=== PATIENT | female | born 1950 | race Caucasian/White ===

== ENCOUNTER 2016-06-05 15:53 | Inpatient (IN) | payer MEDICARE, OTHER ==
[~2016-06-05 15:53] MED LIST: METFORMIN HCL500 MG PO
[2016-06-05 17:14] LABS: HEMOGLOBIN 10.8 gm/dl (12.3-15.3); RED BLOOD COUNT 3.56 M/UL (4.00-5.10)
[2016-06-05 17:37] LABS: BUN/CREATININE RATIO 13 (0-10)
[2016-06-06] MEDS ORDERED: ARNUITY ELLIP100 MCG INJ (00:27)
[2016-06-06] MEDS ORDERED: SYMBICORT 16010.2 GM INH (00:28)
[2016-06-06] MEDS ORDERED: SYNTHROID 125125 MCG PO (00:30)
[2016-06-06] MEDS ORDERED: CALCIUM 600 +1 EAC3 PO (00:30)
[2016-06-06] MEDS ORDERED: NEURONTIN 300300 MG PO (00:31)
[2016-06-06] MEDS ORDERED: LORTAB 5-325 M1 EACH PO (00:32)
[2016-06-06] MEDS ORDERED: SPIRIVA HANDIH18 MCG INH (00:33)
[2016-06-06] MEDS ORDERED: SINGULAIR10 MG PO (00:34)
[2016-06-06] MEDS ORDERED: NITROSTAT 0.40.4 MG SL (00:35)
[2016-06-06] MEDS ORDERED: TRIAMCINOLONE A15 GM TP (00:35)
[2016-06-06] MEDS ORDERED: ASPIRIN EC81 MG PO (00:36)
[2016-06-06] MEDS ORDERED: TRAZODONE HCL150 MG PO (00:37)
[2016-06-06] MEDS ORDERED: LEVOCETIRIZINE D5 MG PO (00:37)
[2016-06-06] MEDS ORDERED: SEROQUEL200 MG PO (00:38)
[2016-06-06] MEDS ORDERED: PAXIL 20 MG TAB20 MG PO (00:38)
[2016-06-06] MEDS ORDERED: PERPHENAZINE8 MG PO (00:39)
[2016-06-06] MEDS ORDERED: INCRUSE ELLI62.5 MCG INH (00:40)
[2016-06-06] MEDS ORDERED: METOPROLOL SUCC25 MG PO (00:40)
[2016-06-06] MEDS ORDERED: LISINOPRIL30 MG PO (00:40)
[2016-06-06 05:28] LABS: HEMOGLOBIN 11.1 gm/dl (12.3-15.3); RED BLOOD COUNT 3.65 M/UL (4.00-5.10)
[2016-06-06 05:51] LABS: BUN/CREATININE RATIO 15 (0-10)
[2016-06-08 04:53] LABS: HEMOGLOBIN 10.6 gm/dl (12.3-15.3); RED BLOOD COUNT 3.55 M/UL (4.00-5.10)
[2016-06-08 04:56] LABS: WHITE BLOOD COUNT 17.5 K/UL (4.5-11.0)
[2016-06-08 05:08] LABS: BUN/CREATININE RATIO 24 (0-10)
[2016-06-09 04:18] LABS: HEMOGLOBIN 10.5 gm/dl (12.3-15.3); RED BLOOD COUNT 3.47 M/UL (4.00-5.10); WHITE BLOOD COUNT 16.1 K/UL (4.5-11.0)
[2016-06-09 04:38] LABS: BUN/CREATININE RATIO 20 (0-10)
[2016-06-10 06:17] LABS: HEMOGLOBIN 10.7 gm/dl (12.3-15.3); RED BLOOD COUNT 3.55 M/UL (4.00-5.10); WHITE BLOOD COUNT 16.2 K/UL (4.5-11.0)
[2016-06-10 06:35] LABS: BUN/CREATININE RATIO 24 (0-10)
[2016-06-10] MEDS ORDERED: GLUCOPHAGE 500500 MG PO (09:46)
[2016-06-10 21:35] LABS: HEMOGLOBIN 11.3 gm/dl (12.3-15.3)
[2016-06-11 06:32] LABS: HEMOGLOBIN 10.6 gm/dl (12.3-15.3)
[2016-06-11] MEDS ORDERED: OMNICEF 300 MG300 MG PO (11:21)
[2016-06-11] MEDS ORDERED: ALBUTEROL0.63 MG/3 INH (11:22)
[2016-06-11] MEDS ORDERED: IPRAT-ALBUT 0.5-3 ML INH (11:23)
== END 2016-06-11 13:07 | disposition home or self-care (01) | DRG 871 ==
LOC: ER1 15:53 → MED SURG 4 18:13 → PROG CARE 18:13 → ZEROF 18:13 → PROG CARE 23:10 → MED SURG 4 06-09 14:24
PROVIDERS: Emergency Medicine; Internal Medicine; ADMIT Hospitalist
DX: A41.9 Sepsis, unspecified organism (principal); J96.21 Acute and chronic respiratory failure with hypoxia; G93.41 Metabolic encephalopathy; J96.22 Acute and chronic respiratory failure with hypercapnia; J44.0 Chronic obstructive pulmonary disease with (acute) lower respiratory infection; K62.5 Hemorrhage of anus and rectum; R65.20 Severe sepsis without septic shock; T79.6XXA Traumatic ischemia of muscle, initial encounter; J44.9 Chronic obstructive pulmonary disease, unspecified; I10 Essential (primary) hypertension; E87.6 Hypokalemia; I95.9 Hypotension, unspecified; E78.5 Hyperlipidemia, unspecified; E66.9 Obesity, unspecified; E03.9 Hypothyroidism, unspecified; D64.9 Anemia, unspecified; I25.10 Atherosclerotic heart disease of native coronary artery without angina pectoris; Z95.1 Presence of aortocoronary bypass graft; Z88.7 Allergy status to serum and vaccine; Z88.8 Allergy status to other drugs, medicaments and biological substances; Z88.0 Allergy status to penicillin; Z79.82 Long term (current) use of aspirin; Z79.891 Long term (current) use of opiate analgesic; Z79.899 Other long term (current) drug therapy; Z28.21 Immunization not carried out because of patient refusal; K64.8 Other hemorrhoids; E11.9 Type 2 diabetes mellitus without complications; Z99.81 Dependence on supplemental oxygen; F17.210 Nicotine dependence, cigarettes, uncomplicated; I27.2 Other secondary pulmonary hypertension; I07.1 Rheumatic tricuspid insufficiency; S00.81XA Abrasion of other part of head, initial encounter; S00.31XA Abrasion of nose, initial encounter; W01.0XXA Fall on same level from slipping, tripping and stumbling without subsequent striking against object, initial encounter; Y93.01 Activity, walking, marching and hiking; Y92.002 Bathroom of unspecified non-institutional (private) residence as the place of occurrence of the external cause
CPT/HCPCS: 36415; 51701; 70450; 71010; 71020; 80048; 80053; 81001; 82550; 82553; 82803; 82962; 83036; 83605; 83735; 83874; 84132; 84439; 84443; 84484; 85014; 85018; 85025; 85027; 87040; 87077; 87186; 87278; 93005; 94640; 94660; 94664; 96374; 96375; 97110; 97116; 99285; J0456; J0696; J1650; J2930; J7030; J7050; Q0175

== ENCOUNTER → 2016-09-30 | Outpatient (CLI) | payer MEDICARE, OTHER ==
[~2016-09-30] MED LIST changes: +ALBUTEROL0.63 MG/3 INH; +ARNUITY ELLIP100 MCG INJ; +ASPIRIN EC81 MG PO; +CALCIUM 600 +1 EAC3 PO; +GLUCOPHAGE 500500 MG PO; +INCRUSE ELLI62.5 MCG INH; +IPRAT-ALBUT 0.5-3 ML INH; +LEVOCETIRIZINE D5 MG PO; +LISINOPRIL30 MG PO; +LORTAB 5-325 M1 EACH PO; +METOPROLOL SUCC25 MG PO; +NEURONTIN 300300 MG PO; +NITROSTAT 0.40.4 MG SL; +OMNICEF 300 MG300 MG PO; +PAXIL 20 MG TAB20 MG PO; +PERPHENAZINE8 MG PO; +SEROQUEL200 MG PO; +SINGULAIR10 MG PO; +SPIRIVA HANDIH18 MCG INH; +SYMBICORT 16010.2 GM INH; +SYNTHROID 125125 MCG PO; +TRAZODONE HCL150 MG PO; +TRIAMCINOLONE A15 GM TP
== END ==
LOC: MAMO 11:20
DX: Z12.31 Encounter for screening mammogram for malignant neoplasm of breast (principal); M81.0 Age-related osteoporosis without current pathological fracture; M85.88 Other specified disorders of bone density and structure, other site; Z13.820 Encounter for screening for osteoporosis
CPT/HCPCS: 77080; G0202